=== PATIENT | female | born 1995 | race Two or more races ===

== ENCOUNTER 2016-09-06 20:23 | Emergency (ER) | payer SELFPAY ==
[2016-09-06 20:31] VITALS: BP 131/84; BMI 25.7
[2016-09-06] MEDS ORDERED: TORADOL 60 MG VIAL IM ONE (20:44)
--- NOTE | 2016-09-06 20:45 | DR.GENAD ---
HPI - PCP Primary Care Physician: NFD - Complaint/Symptoms Chief Complaint Doctors Comments: Patient states that she saw her dentist on two weeks ago and was given hydrocodone and antibiotics, she did not take the hydrocodone makes her sick. Has an appointment for tomorrow Chief Complaint:: RIGHT SIDED TOOTHACHE, RIGHT EARACHE THAT RADIATES DOWN HER RIGHT SIDE, ONSET YESTERDAY, Self Treatment fo Chief Complaint: TOOK MOTRIN 1230 TODAY - Source History Provided: Patient - Mode of Arrival Mode of Arrival: Ambulatory - Timing Onset of Chief Complaint: 09/05/16 PMH - PMH Past Medical History: No Past Surgical History: No - Family History History of Family Medical Conditions: Yes Family Medical History: Diabetes Mellitus, Hypertension - Social History Does patient currently use any type of tobacco product: No Have you used tobacco products in the last 12 months: No Type of Tobacco Use: None Does any household member use tobacco: No Alcohol Use: None Do you use any recreational Drugs:: No Lives With: Family Lives Where: Home - infectious screening In the last 2 months have you had wt loss of >10#?: NO Have you had fever, night sweats or hemotysis?: No Have you traveled outside the country in the last 6 months?: No Isolation: Standard ROS - Review of Systems Constitutional: No Symptoms Reported Eyes: No Symptoms Reported ENTM: No Symptoms Reported Respiratoy: No Symptoms Reported Cardiovascular: No Symptoms Reported Gastrointestinal/Abdominal: No Symptoms Reported Genitourinary: No Symptoms Reported Neurological: No Symptoms Reported Musculoskeletal: No Symptoms Reported Integumentary: No Symptoms Reported Hematologic/Lymphatic: No Symptoms Reported Endocrine: No Symptoms Reported Psychiatric: No Symptoms Reported All Other Systems: Reviewed and Negative PE - Vital Signs Vitals: Temperature 98.6 F Pulse Rate 110 Respiratory Rate 18 Blood Pressure [Right Arm] 111/71 Blood Pressure [Left Arm] 110/58 Blood Pressure 131/84 O2 Sat by Pulse Oximetry 97 - General Limitations: No Limitations General Appearance: Alert - Head Head Exam: Normal Inspection, Atraumatic - Eyes Eye exam: Normal Appearance, PERRL, EOMI - ENT ENT Exam: Normal Exam External Ear Exam: Normal External Inspection TM/Canal Exam: Bilateral Normal Nose Exam: Normal Nose Exam Mouth Exam: Normal Inspection, Other (Teeth #22,29 with cavities,) Throat Exam: Normal Inspection - Neck Neck Exam: Normal Inspection - Chest Chest Inspection: Normal Inspection - Respiratory Respiratory Exam: Normal Lung Sounds Bilat Respiratory Exam: Bilateral Clear to Auscultation - Cardiovascular Cardiovascular Exam: Regular Rate, Normal Rhythm - Abdominal Exam Abdominal Exam: Normal Inspection Abdominal Tenderness: negative: RUQ, RLQ, LUQ, LLQ, Epigastrium, Suprapubic, Diffuse, Mild, Moderate, Severe, Other - Extremities Extremities Exam: Normal Inspection, Full ROM - Back Back Exam: Normal Inspection - Neurologic Neurological Exam: Alert, Oriented X3, CN II-XII Intact - Psychiatric Psychiatric Exam: Normal Affect - Skin Skin Exam: Warm, Dry, Intact Course - Reevaluation 1st: Improved - Diagnosis Discharge Problem: Toothache - Discharge Plan Condition: Stable - Follow ups/Referrals Follow ups/Referrals: NFD,None [Primary Care Provider] - 3 days - Instructions
[2016-09-06] MEDS ORDERED: TORADOL 60 MG VIAL ONE (20:48)
== END 2016-09-06 21:20 | disposition home or self-care (01) ==
LOC: ER 20:36
DX: K08.89 Other specified disorders of teeth and supporting structures (principal)
CPT/HCPCS: 96372; 99282; J1885

== ENCOUNTER 2018-05-27 07:10 | Inpatient (IN) ==
[2018-05-27] MEDS ORDERED: D5LR 1L W PITOCIN 10 UNITS/L 10 UNITS/1,000 ML BAG IV PRN (07:20)
[2018-05-27] MEDS ORDERED: PITOCIN IVP ONE (07:20)
[2018-05-27] MEDS ORDERED: NUBAIN INJ 200 MG VIAL MULTIDOSE IVP PRN (07:20)
[2018-05-27] MEDS ORDERED: D5 1/2 NS 1000 ML 1,000 ML IV SCH (08:00)
[2018-05-27] MEDS ORDERED: FENTANYL INJ 100 mcg ONE (08:14)
[2018-05-27] MEDS ORDERED: XYLOCAINE 1 % (PLAIN) ONE (08:14)
[2018-05-27] MEDS ORDERED: LR 1000 ML IV 1,000 ML IV ONE (08:14)
[2018-05-27] MEDS ORDERED: NAROPIN EPIDURAL 0.2% + FENTANYL 90MCG 60 ML EPI ONE (08:15)
[2018-05-27] MEDS ORDERED: XYLOCAINE-MPF 1% ONE (08:15)
[2018-05-27] MEDS ORDERED: ADRENALINE CHL INJ ONE (08:15)
--- NOTE | 2018-05-27 12:06 | DR.OB ---
OB Quick Note - Assessment/Plan Assessment/Plan: L&D 05/27/18 at 7:00am S-No complaint. O-Afebrile,VSS ENN=[id number] with good LTV, +accel, no decel. CTX=none CVX=2cm/50%/-1/VTX AROM with clear fluid. IUPC and FSE placed. A-IUP at 39 1/7 weeks for induction P-Begin pitocin induction Anticipate
--- NOTE | 2018-05-27 12:09 | DR.OB ---
OB Quick Note - Assessment/Plan Assessment/Plan: L&D 05/27/18 at 12:05pm Pitocin=10mu/min. S-No complaint. s/p epidural. O-Afebrile,VSS RSY=[id number] with good LTV, +accel, no decel. CTX=q 1 1/2 to 2 min., about 45-55mmHg CVX=6-7cm/75%/-1 A-IUP at 39 1/7 weeks for induction P-Cont. pitocin induction Anticipate
[2018-05-27] MEDS ORDERED: PHENERGAN INJ 25 MG IV PRN (14:09)
[2018-05-27] MEDS ORDERED: MILK OF MAGNESIA PO PRN (15:00)
[2018-05-27] MEDS ORDERED: AMBIEN PO PRN (15:00)
[2018-05-27] MEDS ORDERED: ADACEL or BOOSTRIX TDaP VACCINE IM ONE (15:00)
[2018-05-27] MEDS: D5 1/2 NS 1000 ML 1,000 ML with PITOCIN 20 UNITS IV SCH ×2 (15:01)
--- NOTE | 2018-05-27 15:18 | DR.OB ---
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 Head delivered over intact perineum. No nuchal cord. Nose and mouth bulb suctioned. Compound presentation with left hand at head. Body delivered over intact perineum. Cord clamped x 2 and cut. handed to attendant. Cord sent for gases. Placenta delivered spontaneously / intact / 3 vessel cord. No CVX / vaginal / perineal tears. Viable male , VTX/OA, wt=7'4" and 9/9, stable to NBN. Mother stable to RR. [id number].
[2018-05-27] MEDS: MOTRIN TAB 800 MG PO PRN (18:39)
[2018-05-27] MEDS: DERMOPLAST SPRAY TOP PRN (18:40)
[2018-05-27] MEDS: ZANTAC PO SCH (20:41)
[2018-05-28] MEDS: D5 1/2 NS 1000 ML 1,000 ML with PITOCIN 20 UNITS IV SCH ×4 (00:12→07:32)
[2018-05-28] MEDS: DERMOPLAST SPRAY TOP PRN (03:56)
[2018-05-28 05:17] LABS: HEMATOCRIT 35.3 % (36.0-47.0); HEMOGLOBIN 11.4 g/dL (12.0-16.0)
[2018-05-28] MEDS: PRENATAL PLUS PO SCH (08:08)
[2018-05-28] MEDS: ZANTAC PO SCH ×2 (08:08→20:25)
[2018-05-28] MEDS: MOTRIN TAB 800 MG PO PRN (12:47)
[2018-05-29] MEDS: MOTRIN TAB 800 MG PO PRN (04:31)
[2018-05-29] MEDS ORDERED: DEPO-PROVERA CONTRACEPTIVE INJ IM ONE ×2 (07:39→07:53)
[2018-05-29] MEDS: ZANTAC PO SCH (09:07)
[2018-05-29] MEDS: PRENATAL PLUS PO SCH (09:07)
[2018-05-29 11:57] VITALS: BP 109/56
== END 2018-05-29 12:50 | disposition home or self-care (01) | DRG 807 ==
LOC: LD 07:10 → MED/SURG 15:03
PROVIDERS: ADMIT Specialist; ATTEND Specialist
DX: O80 Encounter for full-term uncomplicated delivery; Z23 Encounter for immunization; Z3A.39 39 weeks gestation of pregnancy; Z37.0 Single live birth
CPT/HCPCS: 36415; 59409; 85014; 85018; 90715; A4216; A4222; S0197; J0171; J1050; J3010; J7120